=== PATIENT | female | born 1990 | race Caucasian/White ===

== ENCOUNTER 2017-06-09 11:28 | Emergency (ER) | payer BC, OTHER ==
[~2017-06-09 11:28] MED LIST: IBUP600 PO; PRENCAP10 PO
--- NOTE | 2017-06-09 12:45 | PD ---
HPI Chief Complaint 22 weeks Vaginal leak 1day Date Seen: Jun 09, 2017 Time Seen: 12:25 Travel History International Travel<30 Days: No Contact w/Intl Traveler<30Days: No Known Affected Area: No History of Present Illness HPI Pt is a 27 yo at 22 weeks. [facility] 10-13-2017, care with Dr Ray. Patient reports noticing small leak around 8 o clock this morning. Noticed another leak about 15 minutes later. No further leaking since. No vaginal bleeding. Patient reports active movements Denies any abdominal pain or contractions. Weeks Gestation: 22 Para: 1 : 3 Miscarriage: 1 History Past Medical History Medical History: Denies Significant Hx Obstetric History Obstetric History 16 months ago, uncomplicated Past Surgical History Narrative Surgical Oral surgery Family History Family History: Negative Social History Alcohol Use: No Tobacco Use: No Substance Abuse: No Allergies-Medications (Allergen,Severity, Reaction): Coded Allergies: No Known Allergies (Verified , 01/16/16) Home Meds Active Scripts Ibuprofen (Motrin 600 Mg Tab) 600 Mg Tab, 600 MG PO Q6H Y for CRAMPING, #30 TAB Prov:Dea Mendoza MD 01/18/16 Reported Medications Vit W/ Ferrous Fumara ( Multi +Dha) + Cap, 1 CAP PO, CAP 01/16/16 Review of Systems Except as stated in HPI: all other systems reviewed are Neg Physical Exam Narrative GENERAL: Well-nourished, well-developed patient. SKIN: Warm and dry. HEAD: Normocephalic and atraumatic. EYES: No scleral icterus. No injection or drainage. ENT: No nasal drainage noted. Mucous membranes pink. Airway patent. NECK: Supple, trachea midline. No JVD. CARDIOVASCULAR: Regular rate and rhythm without murmurs, gallops, or rubs. RESPIRATORY: Breath sounds equal bilaterally. No accessory muscle use. BREASTS: Bilateral exam showed no masses , no retractions, no nipple discharge. ABDOMEN/GI: Abdomen soft, non-tender, bowel sounds present, no rebound, no guarding Gravid to [22] weeks size Fundal Height: [22] GENITOURINARY: External Genitalia: intact and normal in appearance BUS glands: [wnl] Cervix: [firm] Dilatation: [closed] Effacement: [-non-effaced] Station: [high] Presentation: [] Membranes: [intact] Uterine Contractions: [none] FHT's: Category: [-] Baseline: [120s] Reactive: [-] Variability: [moderate] Decels: [-] EXTREMITIES: No cyanosis or edema. BACK: Nontender without obvious deformity. No CVA tenderness. NEUROLOGICAL: Awake and alert. Motor and sensory grossly within normal limits. Five out of 5 muscle strength in all muscle groups. Normal speech. Data Data Vital Signs Reviewed: Yes [facility] Medical Record Reviewed: Yes Plan 27 yo at 22 weeks presents to OB ED with c/o vaginal leaking. Amniosure NEGATIVE. No vaginal pool, but small amount thick cream mucoid discharge noted. No leak from cervix with cough. Diagnosis Diagnosis: Primary Impression: 22 weeks gestation of Additional Impression: No leakage of amniotic fluid into vagina Disposition: 01 DISCHARGE HOME Condition: Good Thomas Back MD Jun 09, 2017 12:45
[2017-06-09 13:16] LABS: BACTERIA, URINE RARE /hpf; BILIRUBIN, URINE NEG (NEG); BLOOD, URINE NEG (NEG); GLUCOSE,URINE NEG (NEG); KETONE, URINE NEG (NEG); NITRITE,URINE NEG (NEG); SQUAMOUS EPITHELIAL CELL URINE 1 /hpf (0-5); URINE COLOR LIGHT-YELLOW (YELLW/STRAW); URINE LEUKOCYTE ESTERASE SMALL (NEG)
== END 2017-06-09 13:00 | disposition home or self-care (01) ==
LOC: HOBED 11:28
DX: Z34.92 Encounter for supervision of normal pregnancy, unspecified, second trimester (principal); Z3A.22 22 weeks gestation of pregnancy
CPT/HCPCS: 81001; 84112; 99284

== ENCOUNTER 2017-10-11 11:15 | Inpatient (IN) | payer BC ==
[2017-10-11] VITALS (55 sets, daily range): BP systolic 98–142; BP diastolic 53–88; PULSE 69–100; RESP 15–19; TEMP 97.7–97.9; O2SAT 98–100
[~2017-10-11] VITALS: Ht 162.6 cm; Wt 81.2 kg
[2017-10-11] MEDS: LACTATED RINGER'S 1000 ML INJ 1,000 ML IV SCH ×3 (11:46→18:26)
[2017-10-11 13:31] LABS: AUTOMATED NEUTROPHIL # 8.9 TH/MM3 (1.8-7.7); BASOPHIL % 0.4 % (0.0-2.0); EOSINOPHIL # 0.1 TH/MM3 (0-0.4); EOSINOPHIL % 0.5 % (0.0-4.0); HEMATOCRIT 30.5 % (35.0-46.0); HEMOGLOBIN 9.6 GM/DL (11.6-15.3); LYMPH % 17.1 % (9.0-44.0); MEAN CELL VOLUME 67.7 FL (80.0-100.0); MEAN CORPUSCULAR HEMOGLOBIN 21.2 PG (27.0-34.0); MEAN CORPUSCULAR HGB CONC 31.3 % (32.0-36.0); MEAN PLATELET VOLUME 8.3 FL (7.0-11.0); MONO % 6.5 % (0.0-8.0); MONOCYTE # 0.8 TH/MM3 (0-0.9); NEUT % 75.5 % (16.0-70.0); PLATELET COUNT 337 TH/MM3 (150-450); RED BLOOD COUNT 4.51 MIL/MM3 (4.00-5.30); RED CELL DISTRIBUTION WIDTH 18.3 % (11.6-17.2); WHITE BLOOD COUNT 11.8 TH/MM3 (4.0-11.0)
[2017-10-11 13:50] LABS: BILIRUBIN, URINE NEG (NEG); BLOOD, URINE NEG (NEG); GLUCOSE,URINE NEG (NEG); KETONE, URINE NEG (NEG); MUCUS URINE FEW /lpf (OCC); NITRITE,URINE NEG (NEG); SQUAMOUS EPITHELIAL CELL URINE 1 /hpf (0-5); URINE COLOR LIGHT-YELLOW (YELLW/STRAW); URINE LEUKOCYTE ESTERASE NEG (NEG)
[2017-10-11] MEDS ORDERED: LACTATED RINGER'S 1000 ML INJ 1,000 ML IV PRN (15:05)
[2017-10-11] MEDS ORDERED: LIDOCAINE HCL 1% 50 ML VIAL I-DERMAL PRN (15:15)
[2017-10-11] MEDS ORDERED: ONDANSETRON ODT 4 MG TAB PO PRN ×2 (15:15→22:00)
[2017-10-11] MEDS ORDERED: OXYTOCIN 30 UNITS-500ML PREMIX 500 ML IV ONE (15:15)
[2017-10-11] MEDS ORDERED: LIDOCAINE HCL 1% 50 ML VIAL INFIL PRN (15:15)
[2017-10-11] MEDS ORDERED: SODIUM CHLORID 0.9% 500 ML INJ 500 ML IV PRN (15:15)
[2017-10-11] MEDS ORDERED: MINERAL OIL 10 ML VIAL TOPICAL PRN (15:15)
[2017-10-11] MEDS ORDERED: CITRIC ACID-SODIUM CITRATE LIQ 30 ML UDC PO SCH (15:15)
[2017-10-11] MEDS ORDERED: SODIUM CHLOR 0.9% 1000 ML INJ 1,000 ML IV PRN (15:25)
--- NOTE | 2017-10-11 15:51 | HHI.HP ---
HPI Chief Complaint presented to office with contractions and advanced dilation, to L&D for labor Date Seen: October 11, 2017 Travel History International Travel<30 Days: No Contact w/Intl Traveler<30Days: No Known Affected Area: No History of Present Illness HPI 27 yo with watt female IUP at 39w5d, seen in office today w/ c/o contractions q5-7 min starting at 3am. No LOF or VB. Good FM. Pain 3/10, at times 5/10. Thinks she is in labor. Para: 1 : 2 History Past Medical History Medical History: Denies Significant Hx Obstetric History Obstetric History G1 = FT son "Poncho" G2 = current Past Surgical History Surgical History: No Previous Surgery Family History Family History: Negative Social History Alcohol Use: No Tobacco Use: No Substance Abuse: No Allergies-Medications (Allergen,Severity, Reaction): Coded Allergies: No Known Allergies (Verified , 01/16/16) Home Meds Active Scripts Ibuprofen (Motrin 600 Mg Tab) 600 Mg Tab, 600 MG PO Q6H Y for CRAMPING, #30 TAB Prov:Dea Mendoza MD 01/18/16 Reported Medications Vit W/ Ferrous Fumara ( Multi +Dha) + Cap, 1 CAP PO, CAP 01/16/16 Review of Systems General / Constitutional: Weight Gain, No: Fever, Chills, Other Eyes: No: Diploplia, Blurred Vision, Visual changes, Pain, Photophobia HENT: No: Headaches, Vertigo, Lightheadedness Cardiovascular: No: Irregular Rhythm, Chest Pain or Discomfort, Palpitations, Tachycardia, Syncope, Varicosities, Edema, Cyanosis Respiratory: No: Cough, Short of Breath, Other Gastrointestinal: No: Nausea, Vomiting, Diarrhea Genitourinary: Pelvic Pain, No: Decreased Urinary Output, Oliguria Musculoskeletal: No: Limited ROM, Weakness, Cramping, Edema, Pain Skin: No Rash, No Itching, No Dryness, No Lumps, No Change in Pigmentation, No Change in Nails, No Alopecia, No Lesions Neurologic: No: Weakness, Dizziness, Syncope, Focal Abnormalities, Coordination Problem, Headache, Slurred Speech, Seizures Psychiatric: No: Depression, Suicidal Ideations, Homicidal Ideation Endocrine: No: Heat Intolerance, Cold Intolerance, Polydipsia, Polyuria, Other Physical Exam Narrative GENERAL: Well-nourished, well-developed patient. SKIN: Warm and dry. HEAD: Normocephalic and atraumatic. EYES: No scleral icterus. No injection or drainage. ENT: No nasal drainage noted. Mucous membranes pink. Airway patent. NECK: Supple, trachea midline. No JVD. CARDIOVASCULAR: Regular rate and rhythm without murmurs, gallops, or rubs. RESPIRATORY: Breath sounds equal bilaterally. No accessory muscle use. BREASTS: ABDOMEN/GI: Abdomen soft, non-tender, bowel sounds present, no rebound, no guarding Gravid to [40] weeks size Fundal Height: [38] GENITOURINARY: External Genitalia: intact and normal in appearance Cervix: [mid] Dilatation: [4-5] Effacement: [60] Station: [-1] Presentation: [vtx] Membranes: [intact] Uterine Contractions: [palpated on exam] FHT's: 130s in office EXTREMITIES: No cyanosis or edema. BACK: Nontender without obvious deformity. No CVA tenderness. NEUROLOGICAL: Awake and alert. Motor and sensory grossly within normal limits. Five out of 5 muscle strength in all muscle groups. Normal speech. Caprini VTE Risk Assessment Caprini VTE Risk Assessment: No/Low Risk (score <= 1) VTE Pharm Contraindication: Epidural catheter Caprini Risk Assessment Model Point Value = 1 Point Value = 2 Point Value = 3 Point Value = 5 Age 41-60 Minor surgery BMI > 25 kg/m2 Swollen legs Varicose veins or History of unexplained or recurrent spontaneous Oral contraceptives or hormone replacement Sepsis (< 1 month) Serious lung disease, including pneumonia (< 1 month) Abnormal pulmonary function Acute myocardial infarction Congestive heart failure (< 1 month) History of inflammatory bowel disease Medical patient at bed rest Age 61-74 Arthroscopic surgery Major open surgery (> 45 min) Laparoscopic surgery (> 45 min) Malignancy Confined to bed (> 72 hours) Immobilizing plaster cast Central venous access Age >= 75 History of VTE Family history of VTE Factor V Leiden Prothrombin [id number] Lupus anticoagulant Anticardiolipin antibodies Elevated serum homocysteine Heparin-induced thrombocytopenia Other congenital or acquired thrombophilia Stroke (< 1 month) Elective arthroplasty Hip, pelvis, or leg fracture Acute spinal cord injury (< 1 month) Prophylaxis Regimen Total Risk Factor Score Risk Level Prophylaxis Regimen 0-1 Low Early ambulation 2 Moderate Order ONE of the following: *Sequential Compression Device (SCD) *Heparin 5000 units SQ BID 3-4 Higher Order ONE of the following medications: *Heparin 5000 units SQ TID *Enoxaparin/Lovenox 40 mg SQ daily (WT < 150 kg, CrCl > 30 mL/min) *Enoxaparin/Lovenox 30 mg SQ daily (WT < 150 kg, CrCl > 10-29 mL/min) *Enoxaparin/Lovenox 30 mg SQ BID (WT < 150 kg, CrCl > 30 mL/min) AND/OR *Sequential Compression Device (SCD) 5 or more Highest Order ONE of the following medications: *Heparin 5000 units SQ TID (Preferred with Epidurals) *Enoxaparin/Lovenox 40 mg SQ daily (WT < 150 kg, CrCl > 30 mL/min) *Enoxaparin/Lovenox 30 mg SQ daily (WT < 150 kg, CrCl > 10-29 mL/min) *Enoxaparin/Lovenox 30 mg SQ BID (WT < 150 kg, CrCl > 30 mL/min) AND *Sequential Compression Device (SCD) Data Data Vital Signs Reviewed: Yes Orders Orders Complete Blood Count With Diff (10/11/17 13:16) Hold Clot (10/11/17 13:16) Abo/Rh Blood Type (10/11/17 13:16) Urinalysis - C+S If Indicated (10/11/17 13:16) Specimen To Be Collected PRN (10/11/17 13:16) Instruction (10/11/17 14:43) Admit To Inpatient (10/11/17 ) Code Status (10/11/17 15:05) Vital Signs (Adult) .Per protocol (10/11/17 15:05) Activity Oob Ad Mayte (10/11/17 15:05) Heart (10/11/17 15:05) Amnioinfusion (10/11/17 15:05) Urinary Catheter Management .ONCE (10/11/17 15:05) Diet Liquid (10/11/17 Dinner) Lactated Ringer's 1000 Ml Inj (Lr 1000 M (10/11/17 15:05) Lactated Ringer's 1000 Ml Inj (Lr 1000 M (10/11/17 15:05) Sodium Chlorid 0.9% 500 Ml Inj (Ns 500 M (10/11/17 15:15) Sodium Chlor 0.9% 1000 Ml Inj (Ns 1000 M (10/11/17 15:25) Lidocaine 1% Inj (50 Ml) (Xylocaine 1% I (10/11/17 15:15) Citric Acid-Sodium Citrate Liq (Bicitra (10/11/17 15:15) Fentanyl Inj (Fentanyl Inj) (10/11/17 15:15) Fentanyl Inj (Fentanyl Inj) (10/11/17 15:15) Complete Blood Count With Diff (10/11/17 15:05) Hold Clot (10/11/17 15:05) Abo/Rh Blood Type (10/11/17 15:05) Ob/Psych Drug Screen, Urine (10/11/17 15:05) Resp Oxygen Non Rebreathe Mask (10/11/17 ) ^ Epidural / Intrathecal Infus (10/11/17 15:05) Oxytocin 30 Units-500ml Premix (Pitocin (10/11/17 15:15) Lidocaine 1% Inj (50 Ml) (Xylocaine 1% I (10/11/17 15:15) Light Mineral Oil (Muri-Lube Oil) (10/11/17 15:15) Inpatient Certification (10/11/17 ) Specimen To Be Collected PRN (10/11/17 15:05) Ondansetron Odt (Zofran Odt) (10/11/17 15:15) Group B Strep: Negative Labs Laboratory Tests Test 10/11/17 11:45 White Blood Count 11.8 Red Blood Count 4.51 Hemoglobin 9.6 Hematocrit 30.5 Mean Corpuscular Volume 67.7 Mean Corpuscular Hemoglobin 21.2 Mean Corpuscular Hemoglobin Concent 31.3 Red Cell Distribution Width 18.3 Platelet Count 337 Mean Platelet Volume 8.3 Neutrophils (%) (Auto) 75.5 Lymphocytes (%) (Auto) 17.1 Monocytes (%) (Auto) 6.5 Eosinophils (%) (Auto) 0.5 Basophils (%) (Auto) 0.4 Neutrophils # (Auto) 8.9 Lymphocytes # (Auto) 2.0 Monocytes # (Auto) 0.8 Eosinophils # (Auto) 0.1 Basophils # (Auto) 0.0 CBC Comment DIFF FINAL Differential Comment Urine Color LIGHT-YELLOW Urine Turbidity CLEAR Urine pH 7.0 Urine Specific [place] 1.012 Urine Protein NEG Urine Glucose (UA) NEG Urine Ketones NEG Urine Occult Blood NEG Urine Nitrite NEG Urine Bilirubin NEG Urine Urobilinogen LESS THAN 2.0 Urine Leukocyte Esterase NEG Urine RBC LESS THAN 1 Urine WBC LESS THAN 1 Urine Squamous Epithelial Cells 1 Urine Mucus FEW Microscopic Urinalysis Comment CULT NOT INDICATED Assessment/Plan Problem List: (1) Active labor at term Status: Acute Assessment and Plan 27 yo with watt IUP at 39w5d seen in office with c/o labor pains, sent to L&D for admission 1) Labor: pt changed from 1-2 cm in office on Saturday to 4-5cm today, c/w regular contractions, to L&D for admission 2) GBS neg 3) status: vertex, female, EFW 7# Discharge Planning routine for 2-3d PP Varsha Ray MD October 11, 2017 15:51
[2017-10-11] MEDS ORDERED: MEASLES, MUMPS, RUBELLA VACCINE 0.5 ML VIAL SQ ONE (16:00)
[2017-10-11] MEDS ORDERED: DIPHTH/TETANUS/ACEL PERTUSSIS (BOOSTER) 0.5 ML VIAL/PFS IM ONE (16:00)
[2017-10-11] MEDS ORDERED: fentaNYL 2MCG-BUPIV 0.125% INJ 100 ML ONE (16:45)
[2017-10-11] MEDS ORDERED: ePHEDrine/NS 25 MG/5 ML SYRINGE ONE ×2 (16:45→16:49)
[2017-10-11] MEDS ORDERED: BUPIVACAINE HCL PF 0.25% 10 ML VIAL ONE (16:49)
--- NOTE | 2017-10-11 17:10 | HHI.PR ---
COLLECTION CORRESPONDENT Note Note S: Patient doing well, complaining of contractions, no leakage of fluid or vaginal bleeding O: Exam: 6 cm/80% effaced/-1 station, artificially ruptured with clear fluid FHTs: 120s, moderate variability, accelerations present, no decelerations TOCO: Contractions every 3 minutes A/P 27-year-old 001 at 39 weeks and 5 days by LMP consistent with 8 week ultrasound here today for labor. 1. IUP: Category 1 tracing -GBS negative, cephalic by exam, EFW 7.5 pounds. -Patient desires cord blood banking, reviewed instructions instructed patient that would recommend to not perform delayed cord clamping due to increase likelihood of inadequate specimen, she is in agreement. -Female fetus 2. Labor: Making progression, status post AROM this check, continue expectant management, discussed Pitocin if needed for further augmentation. Patient will desire epidural 3. Anemia: Type and screen Josesito Casey MD October 11, 2017 17:10
[2017-10-11] MEDS ORDERED: LIDOCAINE HCL 1% PF 5 ML AMPULE ONE (17:20)
[2017-10-11] MEDS ORDERED: DO NOT ADM ANY ANTICOAGULANT DRUGS PRN (18:30)
[2017-10-11] MEDS ORDERED: NO SYSTEM NARCOTICS PRN (19:45)
[2017-10-11] MEDS ORDERED: ePHEDrine/NS 25 MG/5 ML SYRINGE IV PUSH PRN (19:45)
[2017-10-11] MEDS ORDERED: fentaNYL 2MCG-BUPIV 0.125% 150 ML EPIDURAL PRN (19:45)
[2017-10-11] MEDS ORDERED: DO NOT ADMINISTER ANTICOAGULANTS PRN (19:45)
[2017-10-11] MEDS ORDERED: LIDOCAINE HCL 1% PF 30 ML VIAL ONE (21:23)
--- NOTE | 2017-10-11 21:53 | PD.OB.DELI ---
Weeks gestation: 39 (39w5d) Pt started active labor?: Yes Medical induction of labor?: No Artificial rupture of membrane: Yes Anesthesia: Epidural, Lidocaine local to perineum (10 cc of 1% lidocaine without epinephrine) Episiotomy: None Vaginal Delivery: Normal, Spontaneous Presentation: Occiput anterior, Vertex Nuchal Cord: x1 (Loose and reduced after delivery) Delayed cord clamping (45 sec): No (Patient declined due to her desire to collect cord blood for banking) Shoulder Dystocia: Other (No dystocia) Infant: Female, Single Delivery date: October 11, 2017 Delivery time: 21:09 One Minute : 8 Five Minute : 9 Placenta: Spontaneous delivery (2115), Intact, 3 vessel cord Laceration: 3 deg (IIIa) Repair: Vicryl running Estimated blood loss: 500 cc Additional Information Specimens: Placenta to disposal, cord blood and cord segment were collected per patient request for private third-green party banking per the company's instructions. Counts: Correct at the end of the procedure Description of procedure: The patient began pushing after the bed was broken down, the head upon was allowed to restitute naturally for delivery with a supported perineum, with gentle downward guidance the anterior shoulder was delivered followed by gentle upper guidance for the posterior shoulder, the torso and lower extremities were delivered with ease and with continued perineal support. The infant had spontaneous cry and was placed on mom's abdomen for skin to skin contact, we allowed delayed cord clamping. After the cord was clamped and cut, cord blood was obtained. Pitocin was bolused and with fundal massage the placenta was delivered, there is minimal uterine bleeding and uterus was firm. The perineum, vagina and cervix were inspected and found 3 a laceration which was repaired as above. The patient tolerated the procedure well and was left in the birthing suite with her . Josesito Casey MD October 11, 2017 21:53
[2017-10-11] MEDS ORDERED: IBUP-232 PO (21:54)
--- NOTE | 2017-10-11 21:55 | HHI.DCPOC ---
Discharge Care Plan Diagnosis: (1) Normal vaginal delivery (2) Third degree perineal laceration (3) 39 weeks gestation of (4) Active labor at term Your Health Problems Are: Vaginal delivery Report Symptoms to Your Doctor -Temperature above 100.5 degrees -Redness, of incision or excessive or foul smelling drainage -Unusual pain or calf pain -Increased vaginal bleeding -Painful or difficulty urinating -Feelings of extreme sadness or anxiety after 2 weeks Goals to Promote Your Health * To prevent worsening of your condition and complications * To maintain your health at the optimal level Directions to Meet Your Goals Take your medications as prescribed Follow your dietary instruction Follow activity as directed Ensure plenty of rest for recovery Drink fluids for hydration Keep your appointments as scheduled Take your immunizations and boosters as scheduled If your symptoms worsen call your PCP, if no PCP go to Urgent Care Center or Emergency Room Smoking is Dangerous to Your Health. Avoid second hand smoke Call the 24-hour crisis hotline for domestic abuse at Josesito Casey MD October 11, 2017 21:55
[2017-10-11] MEDS ORDERED: ACETAMINOPHEN 325 MG TAB PO PRN (22:00)
[2017-10-11] MEDS ORDERED: oxyCODONE/ACETAMINOPHEN 5 MG/325 MG TAB PO PRN ×2 (22:00)
[2017-10-11] MEDS ORDERED: BENZOCAINE 20% TOPICAL SPRAY 60 ML CAN TOPICAL PRN (22:00)
[2017-10-11] MEDS ORDERED: WITCH HAZEL 50%/GLYCERIN 12.5% 40 PAD JAR TOPICAL PRN (22:00)
[2017-10-11] MEDS ORDERED: ZOLPIDEM TARTRATE 5 MG TAB PO PRN (22:00)
[2017-10-11] MEDS ORDERED: OXYTOCIN 30 UNITS-500ML PREMIX 500 ML IV SCH (22:00)
[2017-10-11] MEDS ORDERED: SODIUM CHLORIDE 0.9% FLUSH 10 ML FLUSH IV FLUSH PRN (22:00)
[2017-10-11] MEDS ORDERED: ALUMINUM/MAGNESIUM/SIMETH 30 ML CUP PO PRN (22:00)
[2017-10-11] MEDS: IBUPROFEN 800 MG TAB PO PRN (22:08)
[2017-10-12 01:29] VITALS: BP 119/71; PULSE 94; RESP 18; TEMP 98.1
[2017-10-12 08:00] VITALS: BP 106/70; PULSE 72; RESP 18; TEMP 98; O2SAT 93; O2SAT 96
--- NOTE | 2017-10-12 08:07 | HHI.OB ---
Subjective Post Day: 1 Remarks Doing well, ambulating, voiding, pain well controlled, vaginal bleeding less than menses. Objective Vitals/I&O Vital Signs Date Time Temp Pulse Resp B/P (MAP) Pulse Ox O2 Delivery O2 Flow Rate FiO2 10/12/17 01:29 98.1 94 18 119/71 (87) 10/11/17 23:00 84 108/65 (79) 18 22:45 71 110/63 (79) 18 22:30 16 18 22:30 80 115/65 (82) 18 22:16 93 105/56 (72) 10/11/17 22:00 89 98/70 (79) 10/11/17 21:53 97.9 15 10/11/17 20:31 91 127/73 (91) 10/11/17 20:00 90 125/88 (100) 18 19:50 74 18/18 19:50 98 1818 19:45 75 18 19:45 100 18/18 19:40 100 18/18 19:40 73 10/11/18 19:35 100 10/11/18 19:35 75 10/11/18 19:30 69 112/73 (86) 18 19:30 100 18/18 19:30 76 18/18 19:25 70 18/18 19:25 100 18/18 19:20 79 18/18 19:20 100 18/18 19:16 72 124/73 (90) 18 19:15 72 18/18 19:15 100 18/18 19:10 97.7 18 18 19:10 74 100 18/18 19:05 73 18/18 19:05 100 1818 19:02 105/73 (84) 18 19:00 100 18/18 19:00 77 18 18/18 18:55 85 18/18 18:50 95 18/18 18:46 85 105/53 (70) 18 18:45 82 18/18 18:40 79 5/18/18 18:35 96 5/18/18 18:31 79 109/55 (73) 18 18:30 81 18 18:29 18 18 18:25 85 18 18:20 95 10/11/18 18:15 82 110/61 (77) 10/11/17 18:15 19 10/11/17 18:15 76 18 18:10 95 18 18:05 90 10/11/17 18:00 87 120/61 (80) 18 18:00 84 18 17:55 82 119/66 (83) 18 17:55 90 18 17:51 17 10/11/17 17:50 86 18 17:50 82 121/67 (85) 18 17:45 83 122/58 (79) 18 17:45 88 18 17:42 18 18 17:41 95 115/60 (78) 18 17:40 85 10/11/18 17:35 121/68 (85) 18 17:35 87 10/11/18 17:30 100 18 17:30 93 130/72 (91) 18 17:26 85 112/72 (85) 10/11/18 17:25 85 10/11/18 17:20 91 123/66 (85) 18 17:20 87 18 17:15 98 126/82 (97) 18 17:15 96 18/18 17:10 98 18/18 17:10 97 127/72 (90) 10/11/18 17:05 96 142/81 (101) 18 17:05 98 18/18 17:01 96 126/85 (99) 18 17:00 89 18/18 16:27 18 5/18 16:00 18 Objective Remarks GENERAL: Well-nourished, well-developed patient. CARDIOVASCULAR: Regular rate and rhythm without murmurs, gallops, or rubs. RESPIRATORY: Breath sounds equal bilaterally. No accessory muscle use. ABDOMEN/GI: Abdomen soft, non-tender. Fundus: Firm, non-tender at umbilicus. GENITOURINARY: Light to moderate bleeding. EXTREMITIES: No cyanosis or edema, non-tender, without signs of DVT. Medications and IVs Current Medications Medications (Trade) Dose Ordered Sig/Facundo Route Start Time Stop Time Status Last Admin ([facility] Information) ALL NURSING DEPARTME... UNSCH PRN .XX 10/11/17 18:30 10/12/17 18:29 ([facility] Information) No systemic narcotics to be given except... UNSCH PRN .XX 10/11/17 19:45 10/12/17 19:44 ([facility] Information) DO NOT ADMINISTER ANY ANTICOAGUL... UNSCH PRN .XX 10/11/17 19:45 10/12/17 19:44 (NS Flush) 2 ml BID IV FLUSH 10/12/17 09:00 (NS Flush) 2 ml UNSCH PRN IV FLUSH 10/11/17 22:00 (Tylenol) 650 mg Q4H PRN PO 10/11/17 22:00 10/11/17 22:07 (Motrin) 800 mg Q8H PRN PO 10/11/17 22:00 10/11/17 22:08 (Percocet 5-325 Mg) 1 tab Q4H PRN PO 10/11/17 22:00 10/12/17 05:38 (Percocet 5-325 Mg) 2 tab Q4H PRN PO 10/11/17 22:00 (Americaine 20% Top Spr) 1 spray Q4H PRN TOPICAL 10/11/17 22:00 10/12/17 02:00 (Tucks Pads) 1 applic QID PRN TOPICAL 10/11/17 22:00 10/12/17 02:00 (America-Colace) 2 tab Q12H PRN PO 10/11/17 22:00 (Ambien) 5 mg HS PRN PO 10/11/17 22:00 (Mag-Al Plus Susp Liq) 15 ml Q8H PRN PO 10/11/17 22:00 (Zofran Odt) 4 mg Q6H PRN PO 10/11/17 22:00 Assessment/Plan Problem List: (1) Active labor at term Status: Acute Assessment and Plan 27 yo s/p at 39w5d 1) PPD #1: AF, VSS, discussed expectations, precautions and follow- up. May desire discharge home today. Discussed with nursing, may removed her IV per pt request - Female Josesito Casey MD October 12, 2017 08:07
[2017-10-12] MEDS ORDERED: SODIUM CHLORIDE 0.9% FLUSH 10 ML FLUSH IV FLUSH SCH (09:00)
[2017-10-12] MEDS: DOCUSATE SODIUM 50 MG/SENNA 8.6 MG TAB PO PRN (12:20)
[2017-10-12] MEDS: IBUPROFEN 800 MG TAB PO PRN ×2 (12:20→18:12)
[2017-10-13] MEDS: IBUPROFEN 800 MG TAB PO PRN (02:45)
[2017-10-13] MEDS: DOCUSATE SODIUM 50 MG/SENNA 8.6 MG TAB PO PRN (02:45)
--- NOTE | 2017-10-13 09:31 | HHI.OB ---
Subjective Post Day: 2 Remarks doing well, no complaints, desire d/c home today Objective Objective Remarks GENERAL: Well-nourished, well-developed patient. CARDIOVASCULAR: Regular rate and rhythm without murmurs, gallops, or rubs. RESPIRATORY: Breath sounds equal bilaterally. No accessory muscle use. ABDOMEN/GI: Abdomen soft, non-tender. Fundus: Firm, non-tender at umbilicus. GENITOURINARY: Light to moderate bleeding. EXTREMITIES: No cyanosis or edema, non-tender, without signs of DVT. Medications and IVs Current Medications Medications (Trade) Dose Ordered Sig/Facundo Route Start Time Stop Time Status Last Admin (NS Flush) 2 ml BID IV FLUSH 10/12/17 09:00 (NS Flush) 2 ml UNSCH PRN IV FLUSH 10/11/17 22:00 (Tylenol) 650 mg Q4H PRN PO 10/11/17 22:00 10/11/17 22:07 (Motrin) 800 mg Q8H PRN PO 10/11/17 22:00 10/13/17 02:45 (Percocet 5-325 Mg) 1 tab Q4H PRN PO 10/11/17 22:00 10/12/17 05:38 (Percocet 5-325 Mg) 2 tab Q4H PRN PO 10/11/17 22:00 (Americaine 20% Top Spr) 1 spray Q4H PRN TOPICAL 10/11/17 22:00 10/12/17 02:00 (Tucks Pads) 1 applic QID PRN TOPICAL 10/11/17 22:00 10/12/17 02:00 ([place]-Colace) 2 tab Q12H PRN PO 10/11/17 22:00 10/13/17 02:45 (Ambien) 5 mg HS PRN PO 10/11/17 22:00 (Mag-Al Plus Susp Liq) 15 ml Q8H PRN PO 10/11/17 22:00 (Zofran Odt) 4 mg Q6H PRN PO 10/11/17 22:00 Assessment/Plan Problem List: (1) Active labor at term Status: Acute Assessment and Plan 27 yo s/p at 39w5d 1) PPD #2: AF, VSS, d/c home today. FU in 2 weeks in office. - Female Josesito Casey MD October 13, 2017 09:31
== END 2017-10-13 13:04 | disposition home or self-care (01) | DRG 775 ==
LOC: H2EA 11:15 → H1EA 10-12 01:16
PROVIDERS: ADMIT Obstetrics & Gynecology; ATTEND Obstetrics & Gynecology
PROC: 10E0XZZ Delivery of Products of Conception, External Approach (ICD-10-PCS; principal; 2017-10-11)
PROC: 0DQR0ZZ Repair Anal Sphincter, Open Approach (ICD-10-PCS; 2017-10-11)
PROC: 10907ZC Drainage of Amniotic Fluid, Therapeutic from Products of Conception, Via Natural or Artificial Opening (ICD-10-PCS; 2017-10-11)
PROC: 00HU33Z Insertion of Infusion Device into Spinal Canal, Percutaneous Approach (ICD-10-PCS; 2017-10-11)
PROC: 3E0R3BZ Introduction of Anesthetic Agent into Spinal Canal, Percutaneous Approach (ICD-10-PCS; 2017-10-11)
DX: O69.81X0 Labor and delivery complicated by cord around neck, without compression, not applicable or unspecified (principal); O70.21 Third degree perineal laceration during delivery, IIIa; Z37.0 Single live birth; Z3A.39 39 weeks gestation of pregnancy
CPT/HCPCS: 59025; 80307; 81001; 85025; 86900; 86901; G0481; J2590; J7120